=== PATIENT | male | born 1985 | race Caucasian/White ===

== ENCOUNTER 2016-12-16 18:58 | Emergency (ER) | payer MEDICAID ==
[2016-12-16 19:26] VITALS: TEMP 98; O2SAT 97
--- NOTE | 2016-12-16 19:42 | ED.PDOC ---
History of Present Illness - General Chief Complaint: Lower Extremity Injury Stated Complaint: ankle pain Time Seen by Provider: 12/16/16 19:36 Source: patient Exam Limitations: no limitations - History of Present Illness Initial Comments: Gunnar Jacob 31 y/o male stated that while unloading stuff from his trailer and going down then on stepping on the ground he twisted right ankle stated was able to put weight on his left ankle wearing boots but after taking it off with pian on movement and weight bearing. Occurred: just prior to arrival Pain - Lower Extremity: moderate: Right Ankle Method of Injury: twisted Improving Factors: immobilization Worsening Factors: movement Allergies/Adverse Reactions: Allergies NO KNOWN ALLERGY Allergy (Verified 05/16/16 10:23) Home Medications: Ambulatory Orders Acetaminophen W/ Codeine [Tylenol W/ CODEINE #3] 1 ea PO TID PRN #14 12/16/16 Review of Systems - Review of Systems Constitutional: States: no symptoms reported EENTM: States: no symptoms reported Respiratory: States: no symptoms reported Cardiology: States: no symptoms reported Gastrointestinal/Abdominal: States: no symptoms reported Genitourinary: States: no symptoms reported Musculoskeletal: States: joint pain, joint swelling - right ankle Skin: States: no symptoms reported Neurological: States: no symptoms reported Endocrine: States: no symptoms reported Hematologic/Lymphatic: States: no symptoms reported Past Medical History (General) - Patient Medical History Hx Seizures: No Hx Stroke: No Hx Dementia: No Hx Asthma: No Hx of COPD: No Hx Cardiac Disorders: No Hx Congestive Heart Failure: No Hx Pacemaker: No Hx Hypertension: No Hx Thyroid Disease: No Hx Diabetes: No Hx Gastroesophageal Reflux: No Hx Renal Disease: No Hx Cancer: No Hx of HIV: No Hx Hepatitis C: No Hx MRSA: No Surgical History: tonsillectomy - Vaccination History Hx Tetanus, Diphtheria Vaccination: No Hx Influenza Vaccination: No Hx Pneumococcal Vaccination: No - Social History Hx Tobacco Use: Yes - quit 13 days ago Hx Chewing Tobacco Use: Yes Hx Alcohol Use: Yes - occasionally Hx Substance Use: No Hx Substance Use Treatment: No Hx Depression: No Hx Physical Abuse: No Hx Emotional Abuse: No Hx Suspected Abuse: No - Female History Patient is a Female of Child Bearing Age (10 -59 yrs old): No Patient : No Family Medical History - Family History Father Family History: No Known Physical Exam - Physical Exam General Appearance: Alert, Comfortable, No apparent distress Eyes, Ears, Nose, Throat: PERRL/EOMI, normal ENT inspection Neck: non-tender, full range of motion, supple Cardiovascular/Respiratory: regular rate, rhythm, no M/R/G, normal peripheral pulses, no JVD, normal breath sounds, no respiratory distress Gastrointestinal/Abdominal: non-tender, no organomegaly Back: normal inspection, no CVA tenderness, no vertebral tenderness Thigh/Hip: normal inspection, non-tender, no evidence of injury Leg: normal inspection, non-tender, no evidence of injury Knee: normal inspection, non-tender, no evidence of injury Ankle: normal inspection, bone tenderness, limited ROM - right ankle, soft tissue tenderness, swelling - mild Foot: normal inspection, non-tender, no evidence of injury, normal ROM Neuro/Tendon: normal sensation, normal motor functions, responds to pain Mental Status: alert, oriented x 3, depressed affect Progress - EKG/XRAY/CT XRAY: ankle - right -no fracture,ankle sprain Departure - Departure Clinical Impression: Sprain of right ankle or foot Time of Disposition: 20:33 Disposition: Discharge to Home or Self Care Condition: Good Departure Forms: ED Discharge - Pt. Copy, Patient Portal Self Enrollment Instructions: DI for Ankle Sprain, Ankle Sprain Activity: increase activity as tolerated Referrals: Kanwal Pedroza NP [Primary Care Provider] - 1-2 Weeks Prescriptions: Acetaminophen W/ Codeine [Tylenol W/ CODEINE #3] 1 ea PO TID PRN #14 PRN Reason: Pain Home Medications: Ambulatory Orders Acetaminophen W/ Codeine [Tylenol W/ CODEINE #3] 1 ea PO TID PRN #14 12/16/16 Additional Instructions: Ice pack to affected area 20 minutes 3 x a day during waking hours only until better,elevate right foot 20 degrees at bedtime until better
--- NOTE | 2016-12-16 20:14 | RAD ---
EXAM DESCRIPTION: Ankle,Right 3 Views CLINICAL HISTORY: 31 years, Male, right ankle pain COMPARISON: LEFT ankle radiographs dated 12/27/2013. FINDINGS: Three views of the RIGHT ankle were performed. There is mild soft tissue swelling around the ankle, greatest laterally. Bone mineralization is within normal limits. No acute fracture is identified. Bony alignment is maintained. In particular, the ankle mortise is congruent and the talar dome is intact. No suspicious calcification. An ossification adjacent to the lateral portion of the distal RIGHT tibia along the periphery of the ankle joint has a chronic appearance as seen on the frontal radiograph. IMPRESSION: RIGHT lateral ankle sprain. Electronically signed by: Karely Gu MD 12/16/2016 8:13 PM CDT
[2016-12-16] MEDS ORDERED: HYDROCOD/APAP 10/325 (ER DISP) # 3 tablets PO ONE (20:32)
[2016-12-16 23:12] VITALS: BP 154/87
== END 2016-12-16 20:50 | disposition home or self-care (01) ==
LOC: ER 18:58
DX: S93.401A Sprain of unspecified ligament of right ankle, initial encounter (principal); X50.1XXA Overexertion from prolonged static or awkward postures, initial encounter; Z87.891 Personal history of nicotine dependence

== ENCOUNTER → 2017-05-14 | Outpatient (CLI) | payer SELFPAY | END | disposition home or self-care (01) | LOC: YCFC.O 13:11 | PROVIDERS: ATTEND Nurse Practitioner Family | DX: R73.09 Other abnormal glucose (principal); Z00.00 Encounter for general adult medical examination without abnormal findings; Z68.41 Body mass index [BMI] 40.0-44.9, adult; Z13.29 Encounter for screening for other suspected endocrine disorder; Z83.49 Family history of other endocrine, nutritional and metabolic diseases ==

== ENCOUNTER 2017-07-17 10:53 | Emergency (ER) | payer SELFPAY ==
[2017-07-17 11:17] VITALS: TEMP 98.8; O2SAT 94
[2017-07-17] MEDS ORDERED: SODIUM CHLORIDE 0.9% 1000ML 1,000 ML IVS ONE (11:31)
[2017-07-17] MEDS ORDERED: ONDANSETRON INJ 4 MG/2 ML VIAL IV ONE (11:31)
--- NOTE | 2017-07-17 11:34 | ED.PDOC ---
History of Present Illness - General Chief Complaint: GI Problem Stated Complaint: nausea, vomiting, diarrhea Time Seen by Provider: 07/17/17 11:27 Information Source: patient, RN notes reviewed, Vital Signs reviewed, family - Exam Limitations: no limitations - History of Present Illness Initial Comments: Patient comes in with c/o lower abdominal pain with diarrhea for 1 week. Reports he is having diarrhea 1-2X/hour. Stool is dark but no blood in stool. Nausea and vomiting for 3 days, "can't keep anything down". No fever but + chills and weakness. Abdominal Pain Onset Location: other - across lower abdomen Pain Radiation: no radiation Quality: moderate, steady, throbbing Timing/Duration: 1 week, getting worse Improving Factors: nothing Worsening Factors: nothing Associated Symptoms: diarrhea, fever/chills, fatigue, nausea/vomiting, weakness Review of Systems - Review of Systems Constitutional: States: chills, malaise, weakness. Denies: fever EENTM: States: no symptoms reported Respiratory: States: no symptoms reported Cardiology: States: no symptoms reported Gastrointestinal/Abdominal: States: see HPI, abdominal pain, diarrhea, nausea, vomiting Musculoskeletal: States: muscle pain - bodyaches Skin: States: no symptoms reported Neurological: States: no symptoms reported All other Systems: No Change from Baseline Past Medical History (General) - Patient Medical History Hx Seizures: No Hx Stroke: No Hx Dementia: No Hx Asthma: No Hx of COPD: No Hx Cardiac Disorders: No Hx Congestive Heart Failure: No Hx Pacemaker: No Hx Hypertension: No Hx Thyroid Disease: No Hx Diabetes: No Hx Gastroesophageal Reflux: No Hx Renal Disease: No Hx Cancer: No Hx of HIV: No Hx Hepatitis C: No Hx MRSA: No - Vaccination History Hx Tetanus, Diphtheria Vaccination: No Hx Influenza Vaccination: No Hx Pneumococcal Vaccination: No - Social History Hx Tobacco Use: Yes - quit 13 days ago Hx Chewing Tobacco Use: Yes Hx Alcohol Use: Yes - occasionally Hx Substance Use: No Hx Substance Use Treatment: No Hx Depression: No Hx Physical Abuse: No Hx Emotional Abuse: No Hx Suspected Abuse: No - Female History Patient : No Family Medical History - Family History Father Family History: No Known Physical Exam - Physical Exam General Appearance: Alert, Comfortable, No apparent distress, Obese, Well Developed, Well Groomed, Well Nourished Eyes, Ears, Nose, Throat Exam: other - moderately dry mucous membranes Neck: full range of motion, supple, normal inspection Respiratory: lungs clear, normal breath sounds, no respiratory distress, no accessory muscle use Cardiovascular/Chest: normal peripheral pulses, regular rate, rhythm, no edema, no gallop Peripheral Pulses: 2+ Gastrointestinal/Abdominal: normal bowel sounds, soft, guarding - generalized, rebound - generalized, tenderness - generalized Extremity: normal inspection Neurologic: alert, normal mood/affect, oriented x 3 Skin Exam: normal color, warm/dry Special Observations: Using mobile device Progress - Progress Progress: 07/17/17 12:57 Workup normal except for hematuria. Will treat with antibiotics for probable infectious diarrhea - no sample here Recommended follow up with PCP regarding hematuria. - Results/Orders Results/Orders: Laboratory Tests 07/17/17 07/17/17 07/17/17 11:43 11:45 11:45 WBC 8.4 RBC 5.11 Hgb 15.5 Hct 44.2 MCV 86.4 MCH 30.2 MCHC 35.0 RDW 12.5 Plt Count 241 MPV 8.1 Absolute Neuts (auto) 4.70 Absolute Lymphs (auto) 2.90 Absolute Monos (auto) 0.60 Absolute Eos (auto) 0.10 Absolute Basos (auto) 0.10 Neutrophils % 56.3 Lymphocytes % 34.5 Monocytes % 7.2 Eosinophils % 1.0 Basophils % 1.0 Sodium 137 Potassium 3.8 Chloride 103 Carbon Dioxide 28 Anion Gap 9.8 L BUN 11 Creatinine 0.78 BUN/Creatinine Ratio 14.1 Random Glucose 123 H Serum Osmolality 274.6 L Calcium 9.2 Total Bilirubin 0.8 AST 42 ALT 60 Alkaline Phosphatase 45 Serum Total Protein 7.0 Albumin 4.1 Globulin 2.9 Albumin/Globulin Ratio 1.4 Amylase 32 Lipase 27 Urine Color Yellow Urine Appearance Cloudy Urine pH 7.0 Ur Specific [place] 1.025 Urine Protein 100 H Urine Glucose (UA) Negative Urine Ketones Trace Urine Blood Large H Urine Nitrite Negative Urine Bilirubin Negative Urine Urobilinogen 0.2 Ur Leukocyte Esterase Negative Urine RBC Tntc H Urine WBC 0 Ur Epithelial Cells 0 Urine Bacteria 0 Urine Mucus Small - EKG/XRAY/CT CT Ordered: Yes - abd/pel: fatty liver, o/w nl per Radiologist Departure - Departure Clinical Impression: Dehydration Diarrhea Qualifiers: Diarrhea type: presumed infectious Qualified Code(s): A09 - Infectious gastroenteritis and colitis, unspecified Hematuria Qualifiers: Hematuria type: unspecified type Qualified Code(s): R31.9 - Hematuria, unspecified Time of Disposition: 12:59 Disposition: Discharge to Home or Self Care Condition: Good Departure Forms: ED Discharge - Pt. Copy, Patient Portal Self Enrollment Instructions: DI for Hematuria, Diarrhea, DI for Dehydration -- Adult Diet: resume usual diet Activity: increase activity as tolerated Referrals: Mindy Lazo [employer] [Primary Care Provider] - 1-2 Weeks (Recheck for hematuria) Prescriptions: Ondansetron Odt [Zofran ODT] 8 mg PO Q6HR PRN #20 tab PRN Reason: Nausea/Vomiting Ciprofloxacin [Cipro] 500 mg PO BID #14 tab metroNIDAZOLE [Flagyl] 500 mg PO BID #14 tab Home Medications: Ambulatory Orders Ciprofloxacin [Cipro] 500 mg PO BID #14 tab 07/17/17 Ondansetron Odt [Zofran ODT] 8 mg PO Q6HR PRN #20 tab 07/17/17 metroNIDAZOLE [Flagyl] 500 mg PO BID #14 tab 07/17/17
--- NOTE | 2017-07-17 12:42 | CT ---
EXAM DESCRIPTION: CT abdomen and pelvis without contrast CLINICAL HISTORY: Abdomen pain. Hematuria. COMPARISON: None Available. TECHNIQUE: Noncontrast spiral CT with coronal and sagittal reformatted images. This exam was performed according to our departmental dose-optimization program, which includes automated exposure control, adjustment of the mA and/or kV according to patient size and/or use of iterative reconstruction technique. FINDINGS: No renal stone disease. No renal, ureteral, or bladder calculus. No mass lesion. No inflammatory process identified. Kidneys are normal in size and appearance on noncontrast CT Visualized lung bases are clear. Normal heart size Diffuse fatty infiltration of the liver without hepatic mass lesion. Gallbladder unremarkable. No biliary duct dilation No abnormality of the spleen, pancreas or adrenal glands No abnormality of the stomach, small or large intestine. No mass lesion or inflammatory process. Normal appearance of the terminal ileum and appendix No pelvic soft tissue mass lesion, adenopathy or free fluid No acute muscle or bony abnormality IMPRESSION: Etiology of hematuria not identified. No renal stone disease. No mass lesion or diagnostic inflammatory process genitourinary system Diffuse fatty filtration of the liver Electronically signed by: Huy Castillo MD 07/17/2017 12:41 PM CDT
[2017-07-17 13:14] VITALS: BP 116/73
== END 2017-07-17 13:14 | disposition home or self-care (01) ==
LOC: ER 10:53
DX: E86.0 Dehydration (principal); A09 Infectious gastroenteritis and colitis, unspecified; R31.9 Hematuria, unspecified; Z87.891 Personal history of nicotine dependence
CPT/HCPCS: 36415; 74176; 80053; 81001; 82150; 83690; 85025; J2405; J7030

== ENCOUNTER 2018-07-03 09:10 | Emergency (ER) | payer SELFPAY ==
[2018-07-03] MEDS ORDERED: KETOROLAC TROMETHAMINE INJ 60 MG/2 ML VIAL IM ONE (09:42)
[2018-07-03] MEDS ORDERED: traMADol 37.5MG/APAP 325MG 1 EA TAB PO ONE (09:43)
[2018-07-03] MEDS ORDERED: ORPHENADRINE CITRATE 30 MG/ML AMP IM ONE (09:43)
--- NOTE | 2018-07-03 09:46 | ED.PDOC ---
History of Present Illness - General Chief Complaint: Back Pain or Injury Stated Complaint: LOW BACK PAIN Time Seen by Provider: 07/03/18 09:41 Source: patient Exam Limitations: no limitations - History of Present Illness Initial Comments: PT REPORTS PROGRESSIVELY WORSENING LOW BACK PAIN WITH RADIATION DOWN THE LEFT LEG FOR THE PAST 3 WEEKS AFTER FALLING OFF A LADDER. PT REPORTS PAIN IS ASSOCIATED WITH PARESTHESIA AND BURNING SENSATION TO THE LEFT THIGH AREA. PT DENIES BOWEL OR BLADDER DYSFUNCTION. Timing/Duration: getting worse Quality/Severity: moderate, burning, radiation Back Pain Location: lumbar spine Back Pain Radiation: buttocks, upper legs, lower legs Method of Injury/Prior Injury: fell Improving Factors: immobilization Worsening Factors: movement Associated Symptoms: numbness in legs/feet, lower back pain Allergies/Adverse Reactions: Allergies NO KNOWN ALLERGY Allergy (Verified 07/17/17 11:13) Home Medications: Ambulatory Orders Ciprofloxacin [Cipro] 500 mg PO BID #14 tab 07/17/17 Ondansetron Odt [Zofran ODT] 8 mg PO Q6HR PRN #20 tab 07/17/17 metroNIDAZOLE [Flagyl] 500 mg PO BID #14 tab 07/17/17 Diazepam [Valium] 2 mg PO Q6HR PRN #14 tab 07/03/18 Ibuprofen 800 mg PO Q8HR PRN #30 tab 07/03/18 Tramadol-Acetaminophen [Ultracet] 1 - 2 tab PO Q6HR PRN #30 tab 07/03/18 Review of Systems - Review of Systems Constitutional: Denies: chills, fever Cardiology: Denies: chest pain, syncope Genitourinary: Denies: dysuria, frequency Musculoskeletal: States: back pain, muscle pain. Denies: joint pain Neurological: States: numbness, paresthesia. Denies: weakness Past Medical History (General) - Patient Medical History Hx Seizures: No Hx Stroke: No Hx Dementia: No Hx Asthma: No Hx of COPD: No Hx Cardiac Disorders: No Hx Congestive Heart Failure: No Hx Pacemaker: No Hx Hypertension: No Hx Thyroid Disease: No Hx Diabetes: No Hx Gastroesophageal Reflux: No Hx Renal Disease: No Hx Cancer: No Hx of HIV: No Hx Hepatitis C: No Hx MRSA: No - Vaccination History Hx Tetanus, Diphtheria Vaccination: No Hx Influenza Vaccination: No Hx Pneumococcal Vaccination: No - Social History Hx Tobacco Use: Yes - quit 13 days ago Hx Chewing Tobacco Use: Yes Hx Alcohol Use: Yes - occasionally Hx Substance Use: No Hx Substance Use Treatment: No Hx Depression: No Hx Physical Abuse: No Hx Emotional Abuse: No Hx Suspected Abuse: No - Female History Patient : No Family Medical History - Family History Father Family History: No Known Physical Exam - Physical Exam General Appearance: Alert, Obese, Well Developed, Well Groomed, Well Hydrated, Other - APPEARS UNCOMFORTABLE Neck Exam: normal alignment, normal inspection Cardiovascular/Respiratory: no respiratory distress Back Exam: normal inspection, no CVA tenderness, vertebral tenderness - TO THE LUMBAR REGION, other - L PARA LUMBAR TENDERNESS, L BUTTOCK TENDERNESS, (+) STRAIGHT LEG RAISE AT 30 DEGREES Extremity Exam: no evidence of injury, non-tender Neurologic: alert, normal mood/affect, oriented x 3 Skin Exam: normal color, warm/dry Progress - Progress Progress: 07/03/18 10:52 PT REPORTS SIGNIFICANT IMPROVEMENT IN PAIN AFTER TORADOL, NORFLEX, AND ULTRACET. XRAY FINDINGS DISCUSSED. DISCUSSED THE NEED FOR FOLLOW UP WITH PCP AND POSSIBLE OUTPATIENT MRI IF SYMPTOMS PERSIST. - EKG/XRAY/CT XRAY: LUMBAR-NO ACUTE FINDINGS Departure - Departure Clinical Impression: Acute low back pain with sciatica Time of Disposition: 10:54 Disposition: Discharge to Home or Self Care Condition: Fair Departure Forms: ED Discharge - Pt. Copy, Patient Portal Self Enrollment Instructions: DI for Back Pain With Sciatica Activity: increase activity as tolerated, no lifting Referrals: Mindy Lazo [employer] DES[employer] [Primary Care Provider] - 1 Week Prescriptions: Diazepam [Valium] 2 mg PO Q6HR PRN #14 tab PRN Reason: Muscle Spasms Tramadol-Acetaminophen [Ultracet] 1 - 2 tab PO Q6HR PRN #30 tab PRN Reason: Pain Ibuprofen 800 mg PO Q8HR PRN #30 tab PRN Reason: Pain Home Medications: Ambulatory Orders Ciprofloxacin [Cipro] 500 mg PO BID #14 tab 07/17/17 Ondansetron Odt [Zofran ODT] 8 mg PO Q6HR PRN #20 tab 07/17/17 metroNIDAZOLE [Flagyl] 500 mg PO BID #14 tab 07/17/17 Diazepam [Valium] 2 mg PO Q6HR PRN #14 tab 07/03/18 Ibuprofen 800 mg PO Q8HR PRN #30 tab 07/03/18 Tramadol-Acetaminophen [Ultracet] 1 - 2 tab PO Q6HR PRN #30 tab 07/03/18
--- NOTE | 2018-07-03 10:33 | RAD ---
EXAM DESCRIPTION: Lumbar Spine 3 Views CLINICAL HISTORY: BACK PAIN S/P FALL 3WKS AGO COMPARISON: None Available. TECHNIQUE: Three views lumbar spine FINDINGS: There is good alignment of the lumbar spine. There is no fracture or bone lesion. Vertebral and disc height is maintained. The transverse and spinous processes appear intact. There are no significant degenerative changes observed. No posterior element defects are noted. IMPRESSION: Normal lumbar spine three views. Electronically signed by: Huy Tim MD 07/03/2018 10:31 AM CDT
[2018-07-03 11:03] VITALS: BP 142/77; TEMP 98; O2SAT 95
== END 2018-07-03 11:13 | disposition home or self-care (01) ==
LOC: ER 09:10
DX: M54.42 Lumbago with sciatica, left side (principal); Z87.891 Personal history of nicotine dependence
CPT/HCPCS: 72100; J1885; J2360

== ENCOUNTER 2018-07-27 19:29 | Emergency (ER) | payer SELFPAY ==
[2018-07-27] MEDS ORDERED: KETOROLAC TROMETHAMINE INJ 60 MG/2 ML VIAL IM ONE (19:50)
--- NOTE | 2018-07-27 19:53 | ED.PDOC ---
History of Present Illness - General Chief Complaint: Respiratory Problem Stated Complaint: cough with left sided chest wall pain Time Seen by Provider: 07/27/18 19:49 Source: patient, family Exam Limitations: no limitations - History of Present Illness Comments: patient comes in today with 2 day history of worsening severe left-sided chest pain. Patient states the pain becomes sharp in its most severe with deep inspiration or movement. Patient states it has progressively worsened the last couple of days. He has had a slight scratchy throat and nasal congestion as well as dry cough over the past couple of days that he had attributed to allergies. He's had no fever, chills, nausea or vomiting. He denies wheezing or shortness of breath. He did used to smoke and currently he Vapes. He states he has a history of having a bilateral pneumonia 3 different times. However, this does not feel like when he's been sick with pneumonia in the past. He's had no injury or increased trauma. He had no specific strain or popping of that rib when the pain began. Patient stated that today he could not tolerate the pain with every cough or deep inspiration. He has no past medical history no known drug allergies. Patient has no history of leg swelling or clot formation. He has no family history of blood clots or pulmonary embolus. Timing/Duration: yesterday, getting worse Cough Quality/Degree: mild Possible Cause: no prior episodes Improving Factors: nothing Worsening Factors: movement Associated Symptoms: nasal congestion, sore throat Allergies/Adverse Reactions: Allergies NO KNOWN ALLERGY Allergy (Verified 07/17/17 11:13) Home Medications: Ambulatory Orders Ciprofloxacin [Cipro] 500 mg PO BID #14 tab 07/17/17 Ondansetron Odt [Zofran ODT] 8 mg PO Q6HR PRN #20 tab 07/17/17 metroNIDAZOLE [Flagyl] 500 mg PO BID #14 tab 07/17/17 Diazepam [Valium] 2 mg PO Q6HR PRN #14 tab 07/03/18 Ibuprofen 800 mg PO Q8HR PRN #30 tab 07/03/18 Tramadol-Acetaminophen [Ultracet] 1 - 2 tab PO Q6HR PRN #30 tab 07/03/18 Ibuprofen 800 mg PO TID #15 tab 07/27/18 Prednisone [Deltasone] 20 mg PO DAILY #5 tab 07/27/18 Review of Systems - Review of Systems Constitutional: Denies: chills, fever, malaise EENTM: States: nose congestion, throat pain Respiratory: States: cough. Denies: short of breath, wheezing Cardiology: States: chest pain. Denies: edema, palpitations Gastrointestinal/Abdominal: States: no symptoms reported. Denies: abdominal pain, constipation, diarrhea, nausea, vomiting Genitourinary: States: no symptoms reported Musculoskeletal: States: see HPI Past Medical History (General) - Patient Medical History Hx Seizures: No Hx Stroke: No Hx Dementia: No Hx Asthma: No Hx of COPD: No Hx Cardiac Disorders: No Hx Congestive Heart Failure: No Hx Pacemaker: No Hx Hypertension: No Hx Thyroid Disease: No Hx Diabetes: No Hx Gastroesophageal Reflux: No Hx Renal Disease: No Hx Cancer: No Hx of HIV: No Hx Hepatitis C: No Hx MRSA: No - Vaccination History Hx Tetanus, Diphtheria Vaccination: No Hx Influenza Vaccination: No Hx Pneumococcal Vaccination: No - Social History Hx Tobacco Use: Yes - quit 13 days ago Hx Chewing Tobacco Use: Yes Hx Alcohol Use: Yes - occasionally Hx Substance Use: No Hx Substance Use Treatment: No Hx Depression: No Hx Physical Abuse: No Hx Emotional Abuse: No Hx Suspected Abuse: No - Female History Patient : No Family Medical History - Family History Father Family History: No Known Living Status: Unknown Hx Family Asthma: No Hx Family Congestive Heart Failure: No Hx Family Hypertension: No Hx Family Stroke: No Hx Cardiac Disease: No Hx Family Diabetes: No Hx Family Cancer: No Physical Exam - Physical Exam General Appearance: Alert, No apparent distress Eye Exam: bilateral normal ENT Exam: normal ENT inspection, hearing grossly normal, TMs normal, pharynx normal Neck: non-tender, full range of motion, supple, normal inspection Respiratory: chest non-tender, lungs clear, normal breath sounds Cardiovascular/Chest: normal peripheral pulses, regular rate, rhythm, no edema, no gallop, no JVD, no murmur, other - no crepitus to the rib cage but some point tenderness over ribs 9 and 10 Gastrointestinal/Abdominal: normal bowel sounds, non tender, soft, no organomegaly Extremity: normal range of motion, non-tender Neurologic: alert, oriented x 3 Progress - Progress Progress: 07/27/18 21:00 patient doing much better after Toradol. will start him on IBU and prednisone for costochondritis and have him follow up with PCP on Sunday - Results/Orders Results/Orders: Laboratory Results WBC 10.8 K/mm3 (4.8-10.8) 07/27/18 20:00 RBC 4.97 M/mm3 (4.70-6.10) 07/27/18 20:00 Hgb 15.1 gm/dL (14.0-18.0) 07/27/18 20:00 Hct 43.9 % (42.0-52.0) 07/27/18 20:00 MCV 88.2 fl (80.0-94.0) 07/27/18 20:00 MCH 30.3 pg (27.0-31.0) 07/27/18 20:00 MCHC 34.4 g/dL (33.0-37.0) 07/27/18 20:00 RDW 12.9 % (11.5-14.5) 07/27/18 20:00 Plt Count 254 K/mm3 (130-400) 07/27/18 20:00 MPV 7.9 fl (7.40-10.4) 07/27/18 20:00 Absolute Neuts (auto) 6.20 K/uL (1.8-6.8) 07/27/18 20:00 Absolute Lymphs (auto) 3.50 K/uL (1.0-3.4) H 07/27/18 20:00 Absolute Monos (auto) 0.90 K/uL (0.2-0.8) H 07/27/18 20:00 Absolute Eos (auto) 0.10 K/uL (0.0-0.4) 07/27/18 20:00 Absolute Basos (auto) 0.10 K/uL (0.0-0.1) 07/27/18 20:00 Neutrophils % 57.2 % (42.0-78.0) 07/27/18 20:00 Lymphocytes % 32.6 % (20.0-50.0) 07/27/18 20:00 Monocytes % 8.4 % (2.0-9.0) 07/27/18 20:00 Eosinophils % 1.0 % (1.0-5.0) 07/27/18 20:00 Basophils % 0.8 % (0.0-2.0) 07/27/18 20:00 D-Dimer, Quantitative 0.31 mg/L FEU (0-0.49) 07/27/18 20:00 Creatine Kinase 504 IU/L (38-174) H* 07/27/18 20:00 CK-MB (CK-2) 3.8 ng/mL (0.0-4.4) 07/27/18 20:00 CK-MB (CK-2) % 0.75 % (0.0-3.5) 07/27/18 20:00 Troponin I < 0.02 ng/mL (0.01-0.05) 07/27/18 20:00 Patient Name: ISAÍAS TROY Gender: Male Date of : 1985 Referring Physician: CELENA LIEBERMAN Organization: [facility] Accession Number: [id number] Requested Date: July 27, 2018 19:50 Report Status: Final Requested Procedure: 1 Procedure Description: Chest,2 Views Modality: CR Findings Reporting MD: Shala Metzger MD: Not available Dictation Time: Recyclable Materials Sorter: Not available Medical Center Representative Date: EXAM DESCRIPTION: Chest,2 Views CLINICAL HISTORY: 33 years Male severe pain L with inspiration COMPARISON: 03/10/2014 FINDINGS: The cardiomediastinal silhouette appears unremarkable. No consolidating infiltrates or pleural effusions. No pneumothorax. IMPRESSION: No acute abnormality is identified Patient Name: ISAÍAS TROY Gender: Male Date of : 1985 Referring Physician: CELENA LIEBERMAN Organization: [facility] Accession Number: [id number] Requested Date: July 27, 2018 19:50 Report Status: Final Requested Procedure: 1 Procedure Description: Ribs,Left 3 Views Modality: CR Findings Reporting MD: Shala Metzger MD: Not available Dictation Time: Recyclable [employer] Sorter: Not available Medical Center Representative Date: PROCEDURE: XR RIBS 2 VIEWS UNILATERAL CLINICAL HISTORY: 33 years Male severe pain L with inspiration COMPARISON: None. TECHNIQUE: Three views FINDINGS: No fractures or dislocations are identified no pleural fluid or pleural thickening. No pneumothorax noted.. IMPRESSION: No rib fracture noted Departure - Departure Clinical Impression: Costochondritis, acute Disposition: Discharge to Home or Self Care Condition: Good Departure Forms: ED Discharge - Pt. Copy, Patient Portal Self Enrollment Diet: regular diet Referrals: Mindy Lazo NP [Primary Care Provider] - 1-2 Weeks Prescriptions: Ibuprofen 800 mg PO TID #15 tab Prednisone [Deltasone] 20 mg PO DAILY #5 tab Home Medications: Ambulatory Orders Ciprofloxacin [Cipro] 500 mg PO BID #14 tab 07/17/17 Ondansetron Odt [Zofran ODT] 8 mg PO Q6HR PRN #20 tab 07/17/17 metroNIDAZOLE [Flagyl] 500 mg PO BID #14 tab 07/17/17 Diazepam [Valium] 2 mg PO Q6HR PRN #14 tab 07/03/18 Ibuprofen 800 mg PO Q8HR PRN #30 tab 07/03/18 Tramadol-Acetaminophen [Ultracet] 1 - 2 tab PO Q6HR PRN #30 tab 07/03/18 Ibuprofen 800 mg PO TID #15 tab 07/27/18 Prednisone [Deltasone] 20 mg PO DAILY #5 tab 07/27/18 Additional Instructions: follow up with PCP on Sunday. Return to ER for shortness of breath, chest pain worsening
--- NOTE | 2018-07-27 20:13 | RAD ---
PROCEDURE: XR RIBS 2 VIEWS UNILATERAL CLINICAL HISTORY: 33 years Male severe pain L with inspiration COMPARISON: None. TECHNIQUE: Three views FINDINGS: No fractures or dislocations are identified no pleural fluid or pleural thickening. No pneumothorax noted.. IMPRESSION: No rib fracture noted Electronically signed by: Shala Metzger MD 07/27/2018 8:12 PM CDT
--- NOTE | 2018-07-27 20:13 | RAD ---
EXAM DESCRIPTION: Chest,2 Views CLINICAL HISTORY: 33 years Male severe pain L with inspiration COMPARISON: 03/10/2014 FINDINGS: The cardiomediastinal silhouette appears unremarkable. No consolidating infiltrates or pleural effusions. No pneumothorax. IMPRESSION: No acute abnormality is identified. Electronically signed by: Shala Metzger MD 07/27/2018 8:11 PM CDT
[2018-07-27] MEDS ORDERED: predniSONE 20 MG TAB PO ONE (21:01)
[2018-07-27 21:22] VITALS: BP 119/80; TEMP 97.9; O2SAT 96
== END 2018-07-27 21:19 | disposition home or self-care (01) ==
LOC: ER 19:29
DX: M94.0 Chondrocostal junction syndrome [Tietze] (principal); Z87.891 Personal history of nicotine dependence; Z87.01 Personal history of pneumonia (recurrent)
CPT/HCPCS: 71046; 71101; 82550; 82553; 84484; 85025; 85379; J1885; J7512